=== PATIENT | male | born 1960 | race Caucasian/White ===

== ENCOUNTER 2022-06-07 05:35 | Day surgery (SDC) | payer MEDICARE ==
[~2022-06-07] VITALS: Ht 165.1 cm; Wt 81.8 kg
[~2022-06-07 05:35] MED LIST: ABILIFY5 MG PO; BACTRIM DS TAB1 EACH PO; CENTRUM SILVER1 EAC1 PO; CHLORPROMAZINE100 MG PO; CLONAZEPAM0.5 MG PO; DEPLIN7.5 MG PO; FLOMAX0.4 MG PO; MINIPRESS5 MG PO; PROPRANOLOL HCL20 MG PO; PROZAC20 MG PO; VITAMIN B12-FO1 EACH PO
--- NOTE | 2022-06-07 09:10 | NUR ---
06/07/22 0910 Becki Bond 0838 PT ARRIVED IN PACU NON RESPONSIVE TO NOXIOUS STIMULI WITH OPA IN PLACE. HOLLIDAY WITH RED DRAINAGE PRESENT. 0903 PT REACTIVE. OPA REMOVED. 909 RESTING. REU.
--- NOTE | 2022-06-07 10:20 | NUR ---
PT TO DS FROM PACU AWAKE AND ALERT COMPLAINS OF PAIN 7/10, ENSURE PROTEIN SHAKE AND WATER GIVEN. PT TOLERATES WELL. TRAMADOL GIVEN. PT CAME BACK TO DAYSURGERY WITH HOLLIDAY CATH IN PLACE 100ML OF RED URINE IN BAG. WARM BLANKETS AND SARA HUGGER PLACED ON PT. HIS FRIEND IS AT BEDSIDE. CALL LIGHT WITHIN REACH.
--- NOTE | 2022-06-07 10:40 | NUR ---
200ML OF RED URINE IN HOLLIDAY BAG, ANOTHER BAG OF LR HUNG PER DR SAENZ. PT REPORTS PAIN IS STILL 7/10. WILL ACCESS IN 20 MIN IS PAIN IS NOT BETTER PERCOCET WILL BE GIVEN.
--- NOTE | 2022-06-07 11:35 | NUR ---
PATIENT LAYING IN BED DRINKING WATER. STATES "A LITTLE PAIN BUT ITS TOLERABLE". DENIES NAUSEA. RED URINE NOTED IN HOLLIDAY BAG. NO OTHER NEEDS AT THIS TIME. FRIEND IN ROOM.
--- NOTE | 2022-06-07 17:19 | NUR ---
1150 PT UP TO COMMOD ABLE TO HAVE BM. 300ML OF BLOODY URINE EMPTIED FROM HOLLIDAY BAG.
--- NOTE | 2022-06-07 17:20 | NUR ---
1230 IRRIGATED BLADDER TO REMOVE BLOOD CLOTS. PT TOLERATED WELL.
--- NOTE | 2022-06-07 17:21 | NUR ---
1300 PT RESTING COMFORTABLY DRINKING WATER PT TOLERATES WELL.
--- NOTE | 2022-06-07 17:22 | NUR ---
1430 DISCHARGE INSTRUCTIONS GIVEN TO PT, SHOWED PT HOW TO EMPTY HOLLIDAY BAG. PT VOICED UNDERSTANDING. 200ML OF BLOODY URINE EMPTIED FOR HOLLIDAY BAG.
--- NOTE | 2022-06-07 17:34 | NUR ---
1315 DR SAENZ ORDERED TXA AND ANOTHER 1000ML OF LR.
--- NOTE | 2022-06-07 17:36 | NUR ---
1415 PT RECEICED 3000ML OF LR TOTAL ALL DAY
--- NOTE | 2022-06-08 20:25 | OR ---
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 NAME OF PROCEDURE: Urolift prostatic urethral lift. ANESTHESIA: Monitored anesthesia care. ESTIMATED BLOOD LOSS: 10 mL. COMPLICATIONS: None. SPECIMENS: None. INDICATIONS: Mr. Jesus is a very pleasant 62-year-old gentleman, who recently presented to me earlier this year with complaints of a weak force of stream along with urinary hesitancy and nocturia. He has been taking Flomax for a few years now and his symptoms continued to progressively worsen on the medication. He recently underwent diagnostic cystoscopy, which revealed moderate lateral lobe hypertrophy with no significant median bar. After discussion of his options, he has elected to undergo the Urolift procedure. He presents today to undergo definitive management of his BPH with lower urinary tract symptoms. OPERATIVE FINDINGS: 1. On cystoscopy, there was no evidence of any suspicious masses, lesions, or stones. Bilateral ureteral orifices are in their normal anatomic location. 2. A total of 6 Urolift implants were placed, with 4 on the right and 2 on the left. Placement of the implants was performed without difficulty. However, the patient did bleed a good deal which did affect our visualization towards the end of the procedure. Electronically Signed By: CARMEN SAENZ MD 06/08/222024 PATIENT NAME: TRU JESUS OPERATIVE REPORT DATE OF : 60 REPORT #: [id number] PHYSICIAN: CARMEN SAENZ MD PCP: DAMIÁN GARCIA DO REPORT IS CONFIDENTIAL AND NOT TO BE RELEASED WITHOUT AUTHORIZATION [facility] [address], [place] [address] Signed 3. Due to the patient's gross hematuria, an 18-Sudanese two-way Leiva catheter was inserted into the patient's bladder and connected to gravity drainage. DESCRIPTION OF PROCEDURE: The patient was brought to the operating room and was identified with a surgical pause. He was transferred from the [facility] to the operating room table, where MAC anesthesia was induced. He was then placed in the dorsal lithotomy position and his genitalia were prepped and draped in standard sterile fashion. A 20-Sudanese cystoscope was inserted into the urethral meatus, guided by visual obturator. Inspection of the prostatic urethra was notable for obstruction present as a result of the enlarged lateral lobes of the prostate. The visual obturator was replaced with a Urolift 2 system delivery device. The 1st treatment site was the patient's left side, approximately 1.5 cm distal to the bladder neck. The Urolift 2 system implantation steps were completed as indicated in the product documentation. The capsular tab was successfully deployed. The urethral end piece was successfully affixed to the suture, and the suture was cut. The delivery device was then readvanced into the bladder and then removed from the sheath and the patient. The implant cartridge was removed and the delivery device replaced with the scope seal and the assembled device was reinserted. The implant location opening effect was confirmed cystoscopically. The same steps of the procedure were then performed on the right side at approximately 1.5 cm from the bladder neck, followed by three additional implants just proximal to the verumontanum, 1 on the left and 2 on the right side of the prostate-following the indicated implantation technique. At the end the procedure, a final cystoscopy was conducted, 1st to inspect the location and state of each implant, and 2nd to confirm the presence of a continuous anterior channel from the verumontanum to bladder neck. This channel was present through the prostatic urethra with irrigation flow turned off. An indwelling Leiva catheter was inserted into the patient's bladder and filled with 10 mL of sterile fluid. The patient tolerated the procedure well without any complication. He will now be transferred to the postanesthesia care unit in stable condition. DISPOSITION: I discussed the details of today's procedure with the patient's deacon, Jaspreet Santa, and answered all of his questions. The patient will be sent home with five days worth of Cipro today for antibiotic prophylaxis, along with Pyridium 200 mg p.o. up to t.i.d. p.r.n. dysuria as well as oxybutynin IR 5 mg b.i.d. p.r.n. frequency. He was scheduled to return to clinic to see me in early July with a PVR for his 1st postop visit. He will be going home with his indwelling Leiva catheter this evening and will likely return to clinic tomorrow afternoon to have his Leiva catheter removed. Electronically Signed By: CARMEN SAENZ MD 06/08/222024 PATIENT NAME: TRU JESUS OPERATIVE REPORT DATE OF : 60 REPORT #: [id number] PHYSICIAN: CARMEN SAENZ MD PCP: DAMIÁN GARCIA DO REPORT IS CONFIDENTIAL AND NOT TO BE RELEASED WITHOUT AUTHORIZATION [address] [address] Signed MD SANTOSH Oliveira/MODL /[id number] Copies: ~ Electronically Signed By: CARMEN SAENZ MD 06/08/222024 PATIENT NAME: TRU JESUS OPERATIVE REPORT DATE OF : 60 REPORT #: [id number] PHYSICIAN: CARMEN SAENZ MD PCP: DAMIÁN GARCIA DO REPORT IS CONFIDENTIAL AND NOT TO BE RELEASED WITHOUT AUTHORIZATION
== END 2022-06-07 14:35 | disposition home or self-care (01) ==
LOC: DS 05:35
PROVIDERS: ATTEND Urology
PROC: 0T7D8DZ Dilation of Urethra with Intraluminal Device, Via Natural or Artificial Opening Endoscopic (ICD-10-PCS; principal; 2022-06-07 06:45)
DX: N40.1 Benign prostatic hyperplasia with lower urinary tract symptoms (principal); N39.41 Urge incontinence; R31.0 Gross hematuria
CPT/HCPCS: J0690; J2001; J2250; J2704; J7121